=== PATIENT | female | born 1970 | race Caucasian/White ===

== ENCOUNTER → 2016-09-12 | Outpatient (CLI) | payer BC ==
--- NOTE | 2016-09-12 18:21 | CT ---
EXAMINATION TYPE: CT brain wo con DATE OF EXAM: 09/12/2016 5:43 PM COMPARISON: 12/20/2011 HISTORY: Episode of inability to maneuver to the left today with dizziness. History of lupus. CT DLP: 1135 mGycm. Automated Exposure Control for Dose Reduction was Utilized. TECHNIQUE: CT scan of the head is performed without contrast. FINDINGS: There is no acute intracranial hemorrhage, mass effect, or midline shift identified. Old CSF attenuated lacunar injury is seen of the external capsule. The ventricles and sulci are within no rmal limits in size. The globes are intact and the visualized sinuses are clear. IMPRESSION: 1. No acute intracranial hemorrhage, mass effect, or midline shift is seen. 2. 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
== END | disposition home or self-care (01) ==
LOC: RADCTMAIN 17:15
PROVIDERS: ATTEND Nurse Practitioner
DX: R55 Syncope and collapse (principal); M32.10 Systemic lupus erythematosus, organ or system involvement unspecified; R26.81 Unsteadiness on feet; Z87.820 Personal history of traumatic brain injury
CPT/HCPCS: 70450

== ENCOUNTER → 2016-11-29 | Outpatient (CLI) | payer BC ==
--- NOTE | 2016-12-05 08:22 | MM ---
Reason for exam: screening (asymptomatic). Last mammogram was performed 3 years ago. History: Patient history of other cancer. Physical Findings: A clinical breast exam by your physician is recommended on an annual basis and results should be correlated with mammographic findings. MG Screening Mammo w CAD Bilateral CC and MLO view(s) were taken. Prior study comparison: December 06, 2013, right breast MG work up mamm w CAD RT. November 29, 2013, bilateral MG screening mammo w CAD. November 05, 2012, bilateral digital screening mammo w/CAD. October 21, 2011, bilateral digital screening mammo w/CAD. The breast tissue is heterogeneously dense. This may lower the sensitivity of mammography. Asymmetric density inferior posterior left breast MLO view may represent summation but further evaluation is recommended. ASSESSMENT: Incomplete: need additional imaging evaluation, BI-RAD 0 RECOMMENDATION: Special view mammogram of the left breast. If lesion persists on supplemental views, image directed ultrasound is recommended. [facility] will attempt to contact patient to return for supplemental views and ultrasound if indicated.
== END ==
LOC: RADMAMWWP 13:56
PROVIDERS: ATTEND Obstetrics & Gynecology
DX: Z12.31 Encounter for screening mammogram for malignant neoplasm of breast (principal)

== ENCOUNTER → 2016-12-13 | Outpatient (CLI) | payer BC ==
--- NOTE | 2016-12-13 10:55 | MM ---
Reason for exam: additional evaluation requested from abnormal screening. Last mammogram was performed less than 1 month ago. History: Patient history of other cancer. Physical Findings: Nurse did not find any significant physical abnormalities on exam. MG Work Up Mamm w CAD LT LM and MLO view(s) were taken of the left breast. Prior study comparison: November 29, 2016, bilateral MG screening mammo w CAD. December 06, 2013, right breast MG work up mamm w CAD RT. There is no discrete abnormality including area of concern. These results were verbally communicated with the patient and result sheet given to the patient on 12/13/16. ASSESSMENT: Probably benign, BI-RAD 3 RECOMMENDATION: Follow-up diagnostic mammogram of the left breast in 6 months.
== END | disposition home or self-care (01) ==
LOC: RADMAMWWP 10:23
PROVIDERS: ATTEND Obstetrics & Gynecology
DX: R92.8 Other abnormal and inconclusive findings on diagnostic imaging of breast (principal)

== ENCOUNTER → 2017-06-19 | Outpatient (CLI) | payer BC ==
--- NOTE | 2017-06-19 14:41 | MM ---
Reason for exam: follow-up at short interval from prior study. Last mammogram was performed 6 months ago. History: Patient history of other cancer. Physical Findings: Nurse did not find any significant physical abnormalities on exam. MG Diagnostic Mammo LT w CAD CC and MLO view(s) were taken of the left breast. Prior study comparison: December 13, 2016, left breast MG work up mamm w CAD LT. November 29, 2016, bilateral MG screening mammo w CAD. The breast tissue is extremely dense which could obscure a lesion on mammography. No significant new findings when compared with previous films. These results were verbally communicated with the patient and result sheet given to the patient on 06/19/17. ASSESSMENT: Negative, BI-RAD 1 RECOMMENDATION: Return to routine screening mammogram schedule for both breasts. Back on schedule.
== END | disposition home or self-care (01) ==
LOC: RADMAMWWP 13:03
PROVIDERS: ATTEND Family Medicine
DX: R92.8 Other abnormal and inconclusive findings on diagnostic imaging of breast (principal)
CPT/HCPCS: 77065

== ENCOUNTER → 2017-08-12 | Outpatient (CLI) | payer BC ==
[2017-08-12 11:25] LABS: Basophils # (A) 0.1 k/uL (0-0.2); Basophils % (A) 1 %; Eosinophils # (A) 0.1 k/uL (0-0.7); Eosinophils % (A) 2 %; HCT 46.3 % (34.0-46.0); HGB 15.1 gm/dL (11.4-16.0); Lymphocytes # (A) 1.4 k/uL (1.0-4.8); Lymphocytes % (A) 28 %; MCH 29.7 pg (25.0-35.0); MCHC 32.7 g/dL (31.0-37.0); MCV 90.7 fL (80.0-100.0); Mean Platelet Volume 7.3; Monocytes # (A) 0.4 k/uL (0-1.0); Monocytes % (A) 7 %; Neutrophils % (A) 60 %; Platelet Count 188 k/uL (150-450)
[2017-08-12 12:15] LABS: Albumin 4.5 g/dL (3.5-5.0); Bilirubin, Conjugated 0.9 mg/dL (0.0-0.3); Total Bilirubin 0.6 mg/dL (0.2-1.3); Total Protein 7.1 g/dL (6.3-8.2)
== END | disposition home or self-care (01) ==
LOC: LABWHC1 11:12
PROVIDERS: ATTEND Internal Medicine Rheumatology
DX: M32.9 Systemic lupus erythematosus, unspecified (principal); Z51.81 Encounter for therapeutic drug level monitoring
CPT/HCPCS: 36415; 80061; 80076; 82565; 85025

== ENCOUNTER → 2017-09-16 | Outpatient (CLI) | payer BC ==
[2017-09-16 09:53] LABS: Basophils % (A) 0 %; Eosinophils # (A) 0.1 k/uL (0-0.7); Eosinophils % (A) 1 %; HCT 44.9 % (34.0-46.0); HGB 14.9 gm/dL (11.4-16.0); Lymphocytes # (A) 0.9 k/uL (1.0-4.8); Lymphocytes % (A) 15 %; MCH 30.4 pg (25.0-35.0); MCHC 33.1 g/dL (31.0-37.0); MCV 91.7 fL (80.0-100.0); Mean Platelet Volume 7.1; Monocytes # (A) 0.3 k/uL (0-1.0); Monocytes % (A) 5 %; Neutrophils # (A) 4.9 k/uL (1.3-7.7); Neutrophils % (A) 77 %; Platelet Count 180 k/uL (150-450); RDW 13.1 % (11.5-15.5); WBC 6.3 k/uL (3.8-10.6)
[2017-09-16 10:11] LABS: Albumin 4.3 g/dL (3.5-5.0); Total Protein 6.7 g/dL (6.3-8.2)
[2017-09-16 10:25] LABS: Total Bilirubin 0.4 mg/dL (0.2-1.3)
[2017-09-16 10:38] LABS: Bilirubin, Delta 0.4 mg/dL (0.0-0.2)
== END ==
LOC: LABWHC1 09:19
PROVIDERS: ATTEND Internal Medicine Rheumatology
DX: M32.9 Systemic lupus erythematosus, unspecified (principal); Z51.81 Encounter for therapeutic drug level monitoring
CPT/HCPCS: 36415; 80061; 80076; 82565; 85025

== ENCOUNTER → 2017-09-27 | Outpatient (CLI) | payer BC ==
[2017-09-27 17:05] LABS: Basophils % (A) 1 %; Eosinophils % (A) 1 %; HCT 41.1 % (34.0-46.0); HGB 13.8 gm/dL (11.4-16.0); Lymphocytes # (A) 0.9 k/uL (1.0-4.8); Lymphocytes % (A) 16 %; MCHC 33.4 g/dL (31.0-37.0); MCV 92.6 fL (80.0-100.0); Mean Platelet Volume 7.1; Monocytes # (A) 0.5 k/uL (0-1.0); Monocytes % (A) 9 %; Neutrophils # (A) 4.2 k/uL (1.3-7.7); Neutrophils % (A) 73 %; Platelet Count 167 k/uL (150-450); RBC 4.44 m/uL (3.80-5.40); RDW 13.3 % (11.5-15.5); WBC 5.7 k/uL (3.8-10.6)
[2017-09-27 17:07] LABS: Appearance,Urine Clear (Clear); Bilirubin,Urine Negative (Negative); Blood,Urine Negative (Negative); Color,Urine Yellow; Glucose,Urine (UA) Negative (Negative); Ketones,Urine Negative (Negative); Leukocyte Esterase,Urine Negative (Negative); Nitrite,Urine Negative (Negative); Protein,Urine Negative (Negative); Specific Gravity,Urine 1.015 (1.001-1.035); Urobilinogen,Urine <2.0 mg/dL (<2.0)
[2017-09-27 17:24] LABS: Albumin 4.3 g/dL (3.5-5.0); Calcium 9.8 mg/dL (8.4-10.2); Total Bilirubin 0.5 mg/dL (0.2-1.3); Total Protein 6.5 g/dL (6.3-8.2)
== END | disposition home or self-care (01) ==
LOC: LABWHC1 16:11
PROVIDERS: ATTEND Internal Medicine Rheumatology
DX: Z51.81 Encounter for therapeutic drug level monitoring (principal); M32.9 Systemic lupus erythematosus, unspecified
CPT/HCPCS: 36415; 80053; 81003; 85025

== ENCOUNTER → 2017-11-24 | Outpatient (CLI) | payer BC ==
--- NOTE | 2017-11-26 14:17 | CT ---
EXAMINATION TYPE: CT abdomen pelvis w con DATE OF EXAM: 11/24/2017 HISTORY: Bloating and weight gain CT DLP: 802mGycm Automated Exposure Control for Dose Reduction was Utilized. CONTRAST: CT scan of the abdomen and pelvis is performed with IV Contrast, patient injected with 100 mL of Isov ue 300. COMPARISON: None. FINDINGS: LUNG BASES: No significant abnormality is appreciated. LIVER/GB: No significant abnormality is appreciated. No cholelithiasis. Inferior vena cava is engorge d as are the hepatic veins secondary to hydration status. PANCREAS: No significant abnormality is seen. Pancreatic duct is somewhat prominent although nonenlar ged. No abnormal pancreatic enhancement is seen. SPLEEN: No significant abnormality is seen. ADRENALS: No significant abnormality is seen. No nodularity or thickening. KIDNEYS: There is a too small to accurately characterize lower pole posterior cortically based left r enal lesion measuring 7 mm. Otherwise the kidneys are of unremarkable and symmetric enhancement and e xcretion without hydronephrosis. BOWEL: There is a questionable appendicolith within what is thought to be the appendix in the right l ower quadrant on series 2 image 51. No right lower quadrant inflammatory fat stranding or bowel wall thickening is seen to suggest acute appendicitis. No small or large bowel dilatation. UTERUS/ADNEXA: There is a 4.3 cm fluid attenuated left adnexal cyst, although this appears simple in nature further characterization with pelvic ultrasound could be performed. Smaller dominant right-citlalli ed follicle is noted with heterogeneity of the uterus. LYMPH NODES: No greater than 1cm abdominal or pelvic lymph nodes are appreciated. OSSEOUS STRUCTURES: No significant abnormality is seen. IMPRESSION: 1. 4.3 cm fluid attenuating left adnexal cystic lesion which can be further characterized with ultras ound. 2. Too small to accurately characterize left renal hypoattenuating subcentimeter lesion.
== END | disposition home or self-care (01) ==
LOC: RADCTMAIN 14:36
PROVIDERS: ATTEND Family Medicine
DX: N85.8 Other specified noninflammatory disorders of uterus (principal); N28.9 Disorder of kidney and ureter, unspecified; M32.10 Systemic lupus erythematosus, organ or system involvement unspecified
CPT/HCPCS: 74177; Q9967

== ENCOUNTER → 2018-01-12 | Outpatient (CLI) | payer BC | END | disposition home or self-care (01) | LOC: LABWHC1 15:40 | PROVIDERS: ATTEND Obstetrics & Gynecology | DX: N83.201 Unspecified ovarian cyst, right side (principal) | CPT/HCPCS: 36415; 86304 ==

== ENCOUNTER → 2018-02-16 | Outpatient (CLI) | payer BC ==
[2018-02-16 14:15] LABS: Amylase 103 U/L (30-110); Lipase 189 U/L (23-300)
== END | disposition home or self-care (01) ==
LOC: LABWHC1 11:17
PROVIDERS: ATTEND Internal Medicine Rheumatology
DX: R10.9 Unspecified abdominal pain (principal); M54.9 Dorsalgia, unspecified
CPT/HCPCS: 36415; 82150; 83690

== ENCOUNTER 2018-03-16 10:54 | Day surgery (SDC) | payer BC ==
[2018-03-15 13:42] VITALS: BMI 19.7
[~2018-03-16 10:54] MED LIST: ALPRAZolam 0.5 MG TAB PO PRN; ASPIRIN 325 MG TAB PO STA; ATORVASTATIN 80 MG TAB PO STA; NITROGLYCERIN SL TABS 0.4 MG TAB SUBLINGUAL PRN; SODIUM CHLORIDE 0.9% 1,000 ML in EMPTY BAG 1 BAG IV ONE
[2018-03-16] MEDS: ALPRAZolam 0.25 MG TAB PO PRN ×2 (11:34→12:14)
[2018-03-16] MEDS ORDERED: VERAPAMIL 2.5 MG/ML 2 ML AMP ONE (13:37)
[2018-03-16] MEDS ORDERED: fentaNYL (PF) 50 MCG/ML 2 ML AMP ONE (13:37)
[2018-03-16] MEDS ORDERED: fentaNYL (PF) 50 MCG/ML 2 ML AMP IV ONE (13:44)
[2018-03-16] MEDS ORDERED: MIDAZOLAM 2 MG/2 ML VIAL ONE (13:45)
[2018-03-16] MEDS ORDERED: LIDOCAINE 2% SYG (PF) 100 MG/5 ML MISCELLANE ONE (13:47)
[2018-03-16] MEDS ORDERED: MIDAZOLAM 2 MG/2 ML VIAL IV ONE ×2 (13:48)
[2018-03-16] MEDS ORDERED: HEPARIN SODIUM 1,000 UN/ML (10ML VL) ONE (13:56)
[2018-03-16] MEDS ORDERED: HEPARIN SODIUM 1,000 UN/ML (10ML VL) IV ONE (13:57)
[2018-03-16] MEDS ORDERED: IOPAMIDOL-370 125ML BTL INJ ONE (14:01)
[2018-03-16] MEDS ORDERED: RX INFO: IV CONTRAST WAS GIVEN 1 EACH MISC MISCELLANE PRN (14:14)
[2018-03-16] MEDS ORDERED: SODIUM CHLORIDE 0.9% 1,000 ML IV SCH (14:15)
--- NOTE | 2018-03-16 14:58 | CC ---
CARDIAC CATHETERIZATION REPORT Mrs. Wallace is a 48-year-old female with no prior documented history of obstructive coronary artery disease with normal left ventricular systolic function, who has been complaining of palpitation and dizziness when she is active physically. She underwent a regular stress test where she had runs of ventricular tachycardia. In view of that, recommendation made regarding cardiac catheterization, the procedures, risks and complications were discussed with the patient who is in full understanding and agreement. PROCEDURE: Patient was brought to the [facility] in a fasting semi-sedated state after receiving fentanyl and Benadryl and achieving moderate conscious sedated state. Using Xylocaine anesthesia and Seldinger technique, a 6-Barbadian sheath was introduced in the right radial artery. Selective right and left coronary angiography was performed using 5- Barbadian 3.5 right and left Gris catheter. Multiple views of coronary artery including hemiaxial views obtained. Following that, a 5-Barbadian tight pigtail catheter was introduced in the left ventricle and a 30 degree CLIFTON view of the left ventricle was obtained. Following that, catheter and sheath were removed. Hemostasis was obtained with deployment of a TR band. There was no immediate complication. Patient is returned to room in stable condition. Of note, patient received 3000 units of intravenous heparin as well as intra-arterial verapamil. FINDINGS: 1. LEFT MAIN: This is a large-sized vessel, bifurcating into left circumflex, left anterior descending artery. Left main coronary artery has no evidence of high- grade stenosis. 2. LEFT ANTERIOR DESCENDING ARTERY: This is a large-sized vessel, reaching toward the apex with a wraparound apex segment. The left anterior descending artery as well as branches have no evidence of obstructive coronary artery disease. 3. LEFT CIRCUMFLEX: This is a nondominant vessel, large in caliber, giving rise to 2 obtuse marginal branches, the left circumflex and its branches have no evidence of obstructive coronary artery disease. 4. RIGHT CORONARY ARTERY: This is a large dominant vessel, bifurcating into PDA and posterolateral segment branches. The right coronary artery as well as it branches have no evidence of obstructive disease. 5. LEFT VENTRICULOGRAM: Left ventriculogram was performed in 30 degree CLIFTON view and revealed normal left ventricular size and systolic function. Ejection fraction 60%. There was no significant mitral regurgitation. 6. HEMODYNAMICS: There was no gradient across the aortic valve. The left ventricular end-diastolic pressure was 8-10 mmHg. CONCLUSION: 1. Normal coronary arteries. 2. Normal left ventricular size and systolic function. RECOMMENDATION: In view of finding anatomy, I will continue present medical therapy. Patient was started on beta radha. She will need further evaluation regarding new tachycardia, possible with a cardiac MRI and EP study with possible ICD implantation. Those findings and recommendation were discussed with the patient and her family who are in full understanding and agreement. Duration of procedure is 17 minutes. TAVARES / GRISELDAN: [id number] /
[2018-03-16] MEDS ORDERED: INFLUENZA VACCINE (6 MOS+) 60 MCG/0.5 ML SYRINGE IM ONE (17:10)
[2018-03-16] MEDS: METOPROLOL TARTRATE 25 MG TAB PO SCH (20:59)
[2018-03-16] MEDS ORDERED: busPIRone HCl 10 MG TAB PO SCH (21:00)
[2018-03-16] MEDS ORDERED: MELOXICAM 7.5 MG TAB PO SCH (21:00)
[2018-03-16] MEDS ORDERED: sulfaSALAzine 500 MG TAB PO SCH (21:00)
[2018-03-16] MEDS ORDERED: MIRTAZAPINE 15 MG TAB PO SCH (21:00)
[2018-03-16] MEDS ORDERED: HYDROXYCHLOROQUINE SULFATE 200 MG TAB PO SCH (21:00)
[2018-03-16 23:36] VITALS: RESP 16
[2018-03-17 08:22] VITALS: BP 98/63; PULSE 72; TEMP 98.5
--- NOTE | 2018-03-17 08:46 | PN ---
PROGRESS NOTE Mrs. Wallace is a 48-year-old female with a history of lupus, who was found to have evidence of atrial ventricular tachycardia on the stress test. Underwent cardiac catheterization yesterday that revealed no evidence of obstructive coronary artery disease with normal left ventricular size and systolic function. She is doing well this morning. She is denying any symptoms of chest pain. Her breathing has been stable. No dizziness. No palpitation. She continues to be on Azulfidine, Remeron, Mobic, Lopressor 25 mg twice a day. PHYSICAL EXAMINATION: Blood pressure 103/50 with a heart rate in the 50s. LUNGS: Clear. HEART: Regular rate and rhythm, S1, S2. No S3. No rub. ABDOMEN: Soft and nontender. EXTREMITIES: No edema. Right radial pulse intact. IMPRESSION: 1. Ventricular tachycardia of unclear etiology. The patient tells me that she had a cardiac MRI at [facility] that was reported to be unremarkable. She will need further evaluation with EP study and possible ICD implant. 2. History of lupus. RECOMMENDATIONS: Patient will be discharged home today on the beta radha. I have contacted [facility] and awaiting their respond for further evaluation. The patient will refrain from running until further evaluation is done. MMODL / IJN: [id number] /
[2018-03-17] MEDS: METOPROLOL TARTRATE 25 MG TAB PO SCH (08:58)
[2018-03-17] MEDS ORDERED: FISH OIL PO SCH (09:00)
[2018-03-17] MEDS ORDERED: LACTOBACILLUS ACIDOPH & BULGAR 1 EACH PACKET PO SCH (09:00)
== END 2018-03-17 10:03 | disposition home or self-care (01) ==
LOC: CATHCVL 10:54 → 1SOBS 14:30 → CATHCVL 03-17 10:03
PROVIDERS: ATTEND Internal Medicine Interventional Cardiology
DX: I47.2 Ventricular tachycardia (principal); R94.39 Abnormal result of other cardiovascular function study; M32.9 Systemic lupus erythematosus, unspecified; R07.9 Chest pain, unspecified; Z88.4 Allergy status to anesthetic agent; Z88.8 Allergy status to other drugs, medicaments and biological substances; Z79.1 Long term (current) use of non-steroidal anti-inflammatories (NSAID); Z79.899 Other long term (current) drug therapy
CPT/HCPCS: 93458; 81025; 90686; C1894; C1769; G0008; J2250; J2001; J3010; J1644; Q9967

== ENCOUNTER → 2018-04-09 | Outpatient (CLI) | payer BC ==
[2018-04-09 07:49] LABS: HCT 47.4 % (34.0-46.0); HGB 14.9 gm/dL (11.4-16.0); MCH 29.3 pg (25.0-35.0); MCHC 31.4 g/dL (31.0-37.0); MCV 93.3 fL (80.0-100.0); Mean Platelet Volume 6.8; Platelet Count 238 k/uL (150-450); RBC 5.08 m/uL (3.80-5.40); RDW 12.9 % (11.5-15.5); WBC 7.5 k/uL (3.8-10.6)
[2018-04-09 07:58] LABS: Prothrombin Time 10.4 sec (9.0-12.0)
[2018-04-09 08:01] LABS: Anion Gap 6 mmol/L; Blood Urea Nitrogen 21 mg/dL (7-17); Calcium 9.8 mg/dL (8.4-10.2); Carbon Dioxide 29 mmol/L (22-30); Chloride 105 mmol/L (98-107); Glucose 79 mg/dL (74-99); Potassium 4.2 mmol/L (3.5-5.1); Sodium 140 mmol/L (137-145)
== END ==
LOC: LABWHC1 07:01
PROVIDERS: ATTEND Psychiatry & Neurology Psychiatry
DX: I47.2 Ventricular tachycardia (principal)
CPT/HCPCS: 36415; 80048; 85027; 85610

== ENCOUNTER → 2018-06-07 | Outpatient (CLI) | payer BC ==
[2018-06-07 16:43] LABS: Basophils # (A) 0.1 k/uL (0-0.2); Basophils % (A) 1 %; Eosinophils % (A) 0 %; HGB 13.9 gm/dL (11.4-16.0); Lymphocytes # (A) 1.5 k/uL (1.0-4.8); Lymphocytes % (A) 16 %; MCH 29.2 pg (25.0-35.0); MCHC 31.6 g/dL (31.0-37.0); MCV 92.5 fL (80.0-100.0); Mean Platelet Volume 6.9; Monocytes # (A) 0.5 k/uL (0-1.0); Monocytes % (A) 5 %; Neutrophils % (A) 77 %; Platelet Count 213 k/uL (150-450); RBC 4.75 m/uL (3.80-5.40); WBC 9.1 k/uL (3.8-10.6)
[2018-06-08 01:09] LABS: Albumin 4.5 g/dL (3.80-4.90); Albumin/Globulin Ratio 2.14 (1.60-3.17); Bilirubin, Conjugated 0.2 mg/dL (0.20-0.40); Bilirubin,Unconjugated 0.2 mg/dL; Globulin 2.1 g/dL (1.6-3.3); Total Bilirubin 0.4 mg/dL (0.3-1.2); Total Protein 6.6 g/dL (6.2-8.2)
== END | disposition home or self-care (01) ==
LOC: LABWHC1 15:53
PROVIDERS: ATTEND Internal Medicine Rheumatology
DX: M32.9 Systemic lupus erythematosus, unspecified (principal); Z51.81 Encounter for therapeutic drug level monitoring
CPT/HCPCS: 36415; 80061; 80076; 82565; 85025

== ENCOUNTER 2018-06-20 19:49 | Emergency (ER) | payer BC ==
[2018-06-20 20:33] VITALS: TEMP 99.4
[2018-06-20 21:35] LABS: HCT 49.3 % (34.0-46.0); HGB 15.9 gm/dL (11.4-16.0); MCH 29.9 pg (25.0-35.0); MCHC 32.2 g/dL (31.0-37.0); WBC 9.1 k/uL (3.8-10.6)
[2018-06-20 21:36] LABS: Basophils % (A) 0 %; Eosinophils % (A) 1 %; Lymphocytes # (A) 0.2 k/uL (1.0-4.8); Lymphocytes % (A) 2 %; Mean Platelet Volume 6.8; Monocytes # (A) 0.4 k/uL (0-1.0); Monocytes % (A) 5 %; Neutrophils # (A) 8.4 k/uL (1.3-7.7); Neutrophils % (A) 92 %; Platelet Count 167 k/uL (150-450)
[2018-06-20 21:47] LABS: Calcium 9.1 mg/dL (8.4-10.2); Magnesium 1.9 mg/dL (1.6-2.3); Potassium 4.3 mmol/L (3.5-5.1); Total Bilirubin 0.7 mg/dL (0.2-1.3); Total Protein 6.7 g/dL (6.3-8.2)
--- NOTE | 2018-06-20 21:47 | XR ---
EXAMINATION TYPE: XR chest 2V DATE OF EXAM: 06/20/2018 COMPARISON: 12/20/2011 HISTORY: Chest pain TECHNIQUE: Frontal and lateral views of the chest are obtained. FINDINGS: Heart and mediastinum are normal. Lungs are clear. Costophrenic angles are clear. There is implanted device over the left lateral chest wall. Bony thorax is intact. IMPRESSION: No active cardiopulmonary disease. Normal heart. No change.
[2018-06-20 21:51] LABS: D-Dimer 0.23 mg/L FEU (<0.60); Partial Thromboplastin Time 23.9 sec (22.0-30.0); Prothrombin Time 10.5 sec (9.0-12.0)
[2018-06-20 21:53] LABS: Creatine Kinase 37 U/L (30-135)
[2018-06-20 22:07] LABS: Creatine Kinase MB 0.2 ng/mL (0.0-2.4); Troponin I <0.012 ng/mL (0.000-0.034)
[2018-06-20] MEDS ORDERED: ONDANSETRON 4 MG/2 ML VIAL IVP STA (22:13)
[2018-06-20] MEDS ORDERED: SODIUM CHLORIDE 0.9% 1,000 ML IV ONE (22:13)
[2018-06-20] MEDS ORDERED: MAGNESIUM SULFATE-D5W PMX 1 GM in DEXTROSE/WATER 1 100ML.BAG IVPB ONE (22:23)
--- NOTE | 2018-06-20 23:24 | ED ---
Chest Pain HPI - General Chief Complaint: Chest Pain Stated Complaint: Diarrhea, vomiting and chest pain Time Seen by Provider: 06/20/18 21:04 Source: family Mode of arrival: ambulatory Limitations: no limitations - History of Present Illness Initial Comments: This patient is a 48-year-old woman presenting with a couple of complaints. She states that she was in her usual state of health until developing diarrhea this morning. She states she had a number of watery bowel movements early, then thought that she was feeling better. She states that she then developed a number of episodes of vomiting along with the diarrhea, and after that noted that there was some pain in her chest. She became concerned as she has had history of having episodes of V. tach, having a defibrillator placed for that. At one point her watch registered pulse of 1:30 to 140. The patient did not have any dyspnea, diaphoresis. Review of the patient's records shows that she had a heart catheterization in March that did not reveal any significant coronary artery disease. MD Complaint: chest pain, other -: hour(s) Onset: during rest Pain Location: left chest Pain Radiation: none Severity: mild Quality: aching Consistency: constant Improves With: nothing Worsens With: nothing Anginal Symptoms: nausea, vomiting Treatments Prior to Arrival: none - Related Data Home Medications Medication Instructions Recorded Confirmed Mirtazapine [Remeron] 60 mg PO HS 03/15/18 06/20/18 busPIRone HCL 10 mg PO BID 03/15/18 06/20/18 sulfaSALAzine [Azulfidine] 1,500 mg PO BID 03/15/18 06/20/18 Metoprolol Tartrate [Lopressor] 100 mg PO TID 06/20/18 06/20/18 predniSONE 10 mg PO DAILY 06/20/18 06/20/18 Previous Rx's Medication Instructions Recorded Metoclopramide HCl [Reglan] 5 mg PO Q6H PRN #12 tablet 06/20/18 Allergies Allergy/AdvReac Type Severity Reaction Status Date / Time azithromycin [From Zithromax] Allergy Rash/Hives Verified 06/20/18 20:59 prochlorperazine Allergy "panic Verified 06/20/18 20:59 [From Compazine] attack" Review of Systems ROS Statement: Those systems with pertinent positive or pertinent negative responses have been documented in the HPI. ROS Other: All systems not noted in ROS Statement are negative. Constitutional: Denies: fever, chills Respiratory: Denies: cough, dyspnea Cardiovascular: Reports: as per HPI, chest pain. Denies: palpitations, dyspnea on exertion, orthopnea, edema, syncope Gastrointestinal: Reports: as per HPI, nausea, vomiting, diarrhea. Denies: abdominal pain, hematemesis, melena, hematochezia Genitourinary: Denies: dysuria, hematuria Musculoskeletal: Denies: back pain Skin: Denies: rash Neurological: Denies: headache, weakness, numbness EKG Findings - EKG Results: EKG: interpreted by MEE VASQUEZ, sinus rhythm (Rate 85 bpm), normal axis, normal QRS, normal ST/T, no acute changes - OR, Pacemaker, Normal: Normal tracing: normal tracing Past Medical History Past Medical History: Atrial Fibrillation, Cancer Additional Past Medical History / Comment(s): "heart races"- stress test showed A-fib, heart murmer in past, lupus, psoriatic arthritis, hx skin cancer, lupus History of Any Multi-Drug Resistant Organisms: None Reported Past Surgical History: Appendectomy, Orthopedic Surgery, Uterine Ablation Additional Past Surgical History / Comment(s): skin cancer removed from left arm , ACL left knee, arthrosopy left knee, exploratory laparoscopy, left foot surgery-neuroma, Past Anesthesia/Blood Transfusion Reactions: Motion Sickness, Postoperative Nausea & Vomiting (PONV) Past Psychological History: Anxiety Smoking Status: Former smoker Past Alcohol Use History: Occasional Past Drug Use History: None Reported - Past Family History Mother Family Medical History: Cancer General Exam Limitations: no limitations General appearance: alert, in no apparent distress Head exam: Present: atraumatic, normocephalic Eye exam: Present: normal appearance. Absent: scleral icterus, conjunctival injection ENT exam: Present: normal oropharynx Neck exam: Present: normal inspection Respiratory exam: Present: normal lung sounds bilaterally. Absent: respiratory distress, wheezes, rales, rhonchi, stridor Cardiovascular Exam: Present: regular rate, normal rhythm, normal heart sounds. Absent: systolic murmur, diastolic murmur, rubs, gallop GI/Abdominal exam: Present: soft. Absent: distended, tenderness, guarding, rebound, rigid, mass Extremities exam: Present: normal inspection, normal capillary refill. Absent: pedal edema, calf tenderness Back exam: Present: normal inspection. Absent: CVA tenderness (R), CVA tenderness (L) Neurological exam: Present: alert Skin exam: Present: warm, dry, intact, normal color. Absent: rash Course Vital Signs 06/20/18 06/20/18 06/20/18 19:51 20:33 23:00 Temperature 97.6 F 99.4 F Pulse Rate 101 H 85 Respiratory 22 16 Rate Blood Pressure 100/66 107/60 O2 Sat by Pulse 100 100 Oximetry 06/21/18 00:17 Temperature Pulse Rate 87 Respiratory 16 Rate Blood Pressure 102/55 O2 Sat by Pulse 100 Oximetry Chest Pain MDM - MDM This patient is 48-year-old woman presenting with symptoms consistent with gastroenteritis. She did have some chest pain following the episodes of vomiting. The patient's feeling better following treatment and requests go home. We discussed the appropriate further care and follow-up. Disposition Clinical Impression: Gastroenteritis, Chest pain Disposition: HOME SELF-CARE Instructions (If sedation given, give patient instructions): Chest Pain (ED) Prescriptions: Metoclopramide HCl [Reglan] 5 mg PO Q6H PRN #12 tablet PRN Reason: Vomiting Is patient prescribed a controlled substance at d/c from ED?: No Referrals: Lindsay Sanderson MD [Primary Care Provider] - 1-2 days
[2018-06-21 00:17] VITALS: RESP 16
[2018-06-21 00:18] VITALS: BP 102/55; PULSE 87
== END 2018-06-21 00:17 | disposition home or self-care (01) ==
LOC: EC 19:49
DX: K52.9 Noninfective gastroenteritis and colitis, unspecified (principal); R07.89 Other chest pain; I48.91 Unspecified atrial fibrillation; F41.9 Anxiety disorder, unspecified; L40.50 Arthropathic psoriasis, unspecified; Z87.891 Personal history of nicotine dependence; Z79.899 Other long term (current) drug therapy; Z79.52 Long term (current) use of systemic steroids; Z88.1 Allergy status to other antibiotic agents; Z88.8 Allergy status to other drugs, medicaments and biological substances; Z85.828 Personal history of other malignant neoplasm of skin; Z95.810 Presence of automatic (implantable) cardiac defibrillator
CPT/HCPCS: 36415; 93005; 85379; 80053; 82550; 82553; 83735; 84484; 85025; 85610; 85730; 71046; 99285; 96365; 96375; 96361; J2405; J3475

== ENCOUNTER → 2018-12-11 | Outpatient (CLI) | payer BC ==
--- NOTE | 2018-12-13 12:13 | MM ---
Reason for exam: screening (asymptomatic). Last mammogram was performed 1 year and 6 months ago. History: Patient history of other cancer. Physical Findings: A clinical breast exam by your physician is recommended on an annual basis and results should be correlated with mammographic findings. MG Screening Mammo w CAD Bilateral CC and MLO view(s) were taken. Prior study comparison: June 19, 2017, left breast MG diagnostic mammo LT w CAD. December 13, 2016, left breast MG work up mamm w CAD LT. The breast tissue is extremely dense which could obscure a lesion on mammography. Benign appearing bilateral calcifications. No significant changes when compared with prior studies. ASSESSMENT: Benign, BI-RAD 2 RECOMMENDATION: Routine screening mammogram of both breasts in 1 year.
== END | disposition home or self-care (01) ==
LOC: RADMAMWWP 13:55
PROVIDERS: ATTEND Obstetrics & Gynecology
DX: Z12.31 Encounter for screening mammogram for malignant neoplasm of breast (principal)
CPT/HCPCS: 77067

== ENCOUNTER → 2018-12-28 | Outpatient (CLI) | payer BC ==
[2018-12-28 23:57] LABS: Albumin 4.3 g/dL (3.80-4.90); Anion Gap 6.6 mmol/L (4.00-12.00); BUN/Creat Ratio 19.29 Ratio (12.00-20.00); Calcium 9.5 mg/dL (8.7-10.3); Carbon Dioxide 26.4 mmol/L (21.6-31.8); Magnesium 2.3 mg/dL (1.5-2.4); Phosphorus 3.2 mg/dL (2.4-5.1); Potassium 4.9 mmol/L (3.5-5.5)
== END | disposition home or self-care (01) ==
LOC: LABWHC1 16:40
PROVIDERS: ATTEND Internal Medicine Rheumatology
DX: M32.9 Systemic lupus erythematosus, unspecified (principal); R10.84 Generalized abdominal pain
CPT/HCPCS: 36415; 80069; 83735

== ENCOUNTER → 2019-12-27 | Outpatient (CLI) | payer BC ==
[2019-12-27 16:24] LABS: Basophils % (A) 1 %; Eosinophils # (A) 0.1 k/uL (0-0.7); Eosinophils % (A) 1 %; HCT 45.8 % (34.0-46.0); HGB 14.5 gm/dL (11.4-16.0); Lymphocytes # (A) 1.9 k/uL (1.0-4.8); Lymphocytes % (A) 24 %; MCH 28.7 pg (25.0-35.0); MCHC 31.6 g/dL (31.0-37.0); MCV 90.7 fL (80.0-100.0); Mean Platelet Volume 7.2; Monocytes # (A) 0.4 k/uL (0-1.0); Monocytes % (A) 5 %; Neutrophils # (A) 5.4 k/uL (1.3-7.7); Neutrophils % (A) 68 %; Platelet Count 213 k/uL (150-450); RBC 5.05 m/uL (3.80-5.40); RDW 12.8 % (11.5-15.5); WBC 7.9 k/uL (3.8-10.6)
[2019-12-28 00:41] LABS: Erythrocyte Sedimentation Rate 4 mm/Hr (0-20)
[2019-12-28 01:30] LABS: ALT 21 U/L (8-44); AST 28 U/L (13-35); Albumin/Globulin Ratio 2.05 (1.60-3.17); Alkaline Phosphatase 63 U/L (41-126); BUN/Creat Ratio 21.67 Ratio (12.00-20.00); C Reactive Protein <0.4 mg/dL (0.0-0.8); Calcium 9.4 mg/dL (8.7-10.3); Carbon Dioxide 29.1 mmol/L (21.6-31.8); Chloride 106 mmol/L (96-109); Globulin 2.1 g/dL (1.6-3.3); Glucose 78 mg/dL (70-110); Non-African American GFR(CKD) 52.7 (60.0-200.0); Potassium 4.8 mmol/L (3.5-5.5); Sodium 140 mmol/L (135-145); Total Bilirubin 0.4 mg/dL (0.3-1.2); Total Protein 6.4 g/dL (6.2-8.2)
== END | disposition home or self-care (01) ==
LOC: LABWHC1 15:31
PROVIDERS: ATTEND Internal Medicine Rheumatology
DX: L40.50 Arthropathic psoriasis, unspecified (principal); R53.83 Other fatigue
CPT/HCPCS: 36415; 80053; 84443; 85025; 85652; 86140

== ENCOUNTER → 2020-04-23 | Outpatient (CLI) | payer BC ==
--- NOTE | 2020-04-27 12:06 | BD ---
EXAMINATION TYPE: Axial Bone Density DATE OF EXAM: 04/23/2020 COMPARISON: 11/29/2013 CLINICAL HISTORY: History of multiple foot fractures. Postmenopausal female. Height: 65.5 IN Weight: 128 LBS FRAX RISK QUESTIONS: Secondary Osteoporosis: 3. Menopause before 45: ABLATION AGE 43 RISK FACTORS HISTORY OF: Family History of Osteoporosis: YES GRANDMA Active: YES Diet low in dairy products/other sources of calcium: YES Postmenopausal woman: [place]ATION AGE 43 Take estrogen and/or progesterone medications: YES PREMPRO FOR 6 MONTHS MEDICATIONS: Additional Medications: CALCIUM, VIT D, LUPUS MEDS, ANXIETY MEDS EXAM MEASUREMENTS: Bone mineral densitometry was performed using the [employer] System. Bone mineral density as measured about the Lumbar spine is: ----- L1-L4(G/cm2): 1.031 T Score Values are as follows: ----- L2: -1.3 ----- L3: -1.4 ----- L4: -1.2 ----- L1-L4: -1.2 Bone mineral density has: Decreased -11.8% since study of: 11/29/2013 Bone mineral density about the R hip (g/cm2): 1.034 Bone mineral density about the L hip (g/cm2): 1.003 T Score values are as follows: -----R Neck: 0.0 -----L Neck: -0.2 -----R Total: -0.4 -----L Total: -0.7 Bone mineral density has: Decreased -6.4% since study of: 11/29/2013 IMPRESSION: Osteopenia (T Score between -2.5 and -1) is now present. There is slightly increased risk of fracture and the patient may be considered for treatment. Re-Screen 2-5 years. NOTE: T-SCORE=SD OF THE YOUNG ADULT MEAN.
== END | disposition home or self-care (01) ==
LOC: RADBDWWP 09:15
PROVIDERS: ATTEND Obstetrics & Gynecology
DX: M85.80 Other specified disorders of bone density and structure, unspecified site (principal)
CPT/HCPCS: 77080

== ENCOUNTER → 2020-06-30 | Outpatient (CLI) | payer BC ==
--- NOTE | 2020-07-02 11:39 | MM ---
Reason for exam: screening (asymptomatic). Last mammogram was performed 1 year and 7 months ago. History: Patient is postmenopausal and has history of other cancer at age 30. Family history of breast cancer in sister at age 52. Taking estrogen for 1 year. Taking progesterone for 1 year. Physical Findings: A clinical breast exam by your physician is recommended on an annual basis and results should be correlated with mammographic findings. MG Screening Mammo w CAD Bilateral CC and MLO view(s) were taken. Prior study comparison: December 11, 2018, bilateral MG screening mammo w CAD. June 19, 2017, left breast MG diagnostic mammo LT w CAD. The breast tissue is heterogeneously dense. This may lower the sensitivity of mammography. No significant changes when compared with prior studies. ASSESSMENT: Benign, BI-RAD 2 RECOMMENDATION: Routine screening mammogram of both breasts in 1 year.
== END ==
LOC: RADMAMWWP 07:18
PROVIDERS: ATTEND Obstetrics & Gynecology
DX: Z12.31 Encounter for screening mammogram for malignant neoplasm of breast (principal); Z78.0 Asymptomatic menopausal state; Z80.3 Family history of malignant neoplasm of breast
CPT/HCPCS: 77067

== ENCOUNTER → 2021-07-26 | Outpatient (CLI) | payer BC ==
--- NOTE | 2021-07-27 12:58 | MM ---
Reason for exam: screening (asymptomatic). Last mammogram was performed 1 year and 1 month ago. History: Patient is postmenopausal and has history of other cancer at age 30. Family history of breast cancer in sister at age 52. Taking estrogen for 1 year. Taking progesterone for 1 year. Physical Findings: A clinical breast exam by your physician is recommended on an annual basis and results should be correlated with mammographic findings. MG Screening Mammo w CAD Bilateral CC and MLO view(s) were taken. Prior study comparison: June 30, 2020, bilateral MG screening mammo w CAD. December 11, 2018, bilateral MG screening mammo w CAD. The breast tissue is heterogeneously dense. This may lower the sensitivity of mammography. Posterior lateral asymmetric density right breast. Further evaluation recommended. Left MLO asymmetric density just superior to the retroareolar plane is more defined. ASSESSMENT: Incomplete: need additional imaging evaluation, BI-RAD 0 RECOMMENDATION: Special view mammogram of both breasts. (3D) If lesion persists on supplemental views, image directed ultrasound is recommended. [facility] will attempt to contact patient to return for supplemental views and ultrasound if indicated.
== END | disposition home or self-care (01) ==
LOC: RADMAMWWP 13:01
PROVIDERS: ATTEND Obstetrics & Gynecology
DX: Z12.31 Encounter for screening mammogram for malignant neoplasm of breast (principal); Z78.0 Asymptomatic menopausal state; Z80.3 Family history of malignant neoplasm of breast
CPT/HCPCS: 77067

== ENCOUNTER → 2021-07-29 | Outpatient (CLI) | payer BC ==
--- NOTE | 2021-07-30 08:32 | MM ---
Reason for exam: additional evaluation requested from abnormal screening. Last mammogram was performed less than 1 month ago. History: Patient is postmenopausal and has history of other cancer at age 30. Family history of breast cancer in sister at age 52. Taking estrogen for 1 year beginning at age 50. Taking progesterone for 1 year beginning at age 50. Physical Findings: A clinical breast exam by your physician is recommended on an annual basis and results should be correlated with mammographic findings. MG Work Up Mamm w CAD BILAT Bilateral spot compression CC and spot compression MLO view(s) were taken. ML view(s) were taken of the right breast. LM view(s) were taken of the left breast. Prior study comparison: July 26, 2021, bilateral MG screening mammo w CAD. June 30, 2020, bilateral MG screening mammo w CAD. The breast tissue is heterogeneously dense. This may lower the sensitivity of mammography. Right lateral posterior density disperses. Left central upper inner quadrant focal asymmetry partially disperses. Ultrasound recommended. ASSESSMENT: Incomplete: need additional imaging evaluation, BI-RAD 0 RECOMMENDATION: Ultrasound of the left breast. (8-12 o'clock)
--- NOTE | 2021-07-30 08:33 | USB ---
Reason for exam: additional evaluation requested from abnormal screening. History: Patient is postmenopausal and has history of other cancer at age 30. Family history of breast cancer in sister at age 52. Taking estrogen for 1 year beginning at age 50. Taking progesterone for 1 year beginning at age 50. Physical Findings: A clinical breast exam by your physician is recommended on an annual basis and results should be correlated with mammographic findings. US Breast Workup Limited LT Left limited breast ultrasound including focal area of concern, retroareolar and axilla demonstrates no cystic or solid lesion seen. Scanned 8-12 o'clock, dense tissue. ASSESSMENT: Probably benign, BI-RAD 3 RECOMMENDATION: Follow-up diagnostic mammogram of the left breast in 6 months.
== END | disposition home or self-care (01) ==
LOC: RADMAMWWP 13:41
PROVIDERS: ATTEND Obstetrics & Gynecology
DX: R92.8 Other abnormal and inconclusive findings on diagnostic imaging of breast (principal); Z78.0 Asymptomatic menopausal state; Z80.3 Family history of malignant neoplasm of breast
CPT/HCPCS: 77066

== ENCOUNTER → 2022-02-04 | Outpatient (CLI) | payer BC ==
--- NOTE | 2022-02-04 15:28 | MM ---
Reason for Exam: Follow-up at short interval from prior study. Last screening mammogram was performed 7 month(s) ago. Patient History: Menarche at age 12. First Full-Term at age 25. Postmenopausal. Other cancer, age 30. Estrogen for 2 years from age 50 until age 52. Progesterone for 2 years from age 50 until age 52. Sister had breast cancer, age 52. Risk Values: Hien 5 year model risk: 2.2%. NCI Lifetime model risk: 16.1%. Prior Study Comparison: 06/30/2020 Bilateral Screening Mammogram, [facility]. 07/26/2021 Bilateral Screening Mammogram, [facility]. 07/29/2021 Bilateral Diagnostic Mammogram, [facility]. Tissue Density: Left: The breast tissue is heterogeneously dense. This may lower the sensitivity of mammography. Findings: Analyzed By CAD. No persistent focal asymmetric density or distortion is evident. No suspicious spiculated or lobular masses, cluster microcalcifications or other secondary signs of malignancy are radiographically apparent. Overall Assessment: Benign, BI-RAD 2 Management: Screening Mammogram of both breasts in 6 months. A clinical breast exam by your physician is recommended on an annual basis and results should be correlated with mammographic findings. This exam should not preclude additional follow-up of suspicious palpable abnormalities. Results were given to the patient verbally at the time of exam. Electronically signed and approved by: Elgin Duncan D.O. Radiologis
== END | disposition home or self-care (01) ==
LOC: RADMAMWWP 13:35
PROVIDERS: ATTEND Obstetrics & Gynecology
DX: R92.8 Other abnormal and inconclusive findings on diagnostic imaging of breast (principal)
CPT/HCPCS: 77065

== ENCOUNTER → 2022-08-08 | Outpatient (CLI) | payer BC ==
--- NOTE | 2022-08-08 16:12 | BD ---
EXAMINATION TYPE: Axial Bone Density DATE OF EXAM: 08/08/2022 CLINICAL HISTORY: 52 years old Female. ICD-10 CODE: MM85.88 Height: 66 Weight: 130.7 FRAX RISK QUESTIONS: Alcohol (3 or more units per day): no Family History (Parent hip fracture): no Glucocorticoids (More than 3mos): no (Ex: prednisone, prednisolone, methylprednisolone, dexamethasone, and hydrocortisone). History of Fracture in Adulthood: yes Secondary Osteoporosis: 1. Type 1 Diabetes: no 2. Hyperthyroidism: no 3. Menopause before 45: no 4. Malnutrition: no 5. Chronic liver disease: no Rheumatoid Arthritis: no Current Tobacco Use: no RISK FACTORS HISTORY OF: Surgery to Spine/Hip(right/left)/Wrist (right/left): no Family History of Osteoporosis: yes Active: yes Diet low in dairy products/other sources of calcium: yes Postmenopausal woman: no Lost more than 2 inches in height since high school: no MEDICATIONS: Additional History: EXAM MEASUREMENTS: Bone mineral densitometry was performed using the [email or web address] System. Bone mineral density as measured about the Lumbar spine is: ----- L1-L4(G/cm2): 1.078 T Score Values are as follows: ----- L1: -0.9 ----- L2: -1.0 ----- L3: -0.9 ----- L4: -0.7 ----- L1-L4: -0.9 Z Score Values are as follows: ----- L1: -0.1 ----- L2: -0.2 ----- L3: -0.1 ----- L4: 0.2 ----- L1-L4: 0.0 Bone mineral density has: increased 4.6 % since study of: 04.23.2020 Bone mineral density about the R hip (g/cm2): 0.972 Bone mineral density about the L hip (g/cm2): 0.947 T Score values are as follows: -----R Neck: -0.1 -----L Neck: 0.2 -----R Total: -0.3 -----L Total: -0.5 Z Score values are as follows: -----R Neck: 0.9 -----L Neck: 1.3 -----R Total: 0.4 -----L Total: 0.2 Bone mineral density has: increased 1.8 % since study of: 04.23.2020 FRAX%s: The graph provided illustrates a 7.6% chance for a major osteoporotic fx and a 0.2% chance fo r the hips probability for fx in 10 years time. IMPRESSION: Normal (Values between +1 and -1 indicate normal bone mass). Consider repeating this study in 5 year s or sooner if there is some new clinical indication. NOTE: T-SCORE=SD OF THE YOUNG ADULT MEAN.
--- NOTE | 2022-08-09 09:53 | MM ---
Reason for Exam: Screening (asymptomatic). Last mammogram was performed 1 year(s) and 1 month(s) ago. Patient History: Menarche at age 12. First Full-Term at age 25. Postmenopausal. Other cancer, age 30. Estrogen for 2 years from age 50 until age 52. Progesterone for 2 years from age 50 until age 52. Sister had breast cancer, age 52. Risk Values: Hien 5 year model risk: 2.2%. NCI Lifetime model risk: 16.1%. Prior Study Comparison: 07/26/2021 Bilateral Screening Mammogram, [facility]. 07/29/2021 Bilateral Diagnostic Mammogram, [facility]. 02/04/2022 Left MG diagnostic mammo LT w CAD, [facility]. Tissue Density: The breast tissue is heterogeneously dense. This may lower the sensitivity of mammography. Findings: Analyzed By CAD. There is no suspicious group of microcalcifications or new suspicious mass in either breast. Overall Assessment: Negative, BI-RAD 1 Management: Screening Mammogram of both breasts in 1 year. A clinical breast exam by your physician is recommended on an annual basis and results should be correlated with mammographic findings. Electronically signed and approved by: Deandre Mckeon M.D. Radiologis
== END | disposition home or self-care (01) ==
LOC: RADMAMWWP 15:17
PROVIDERS: ATTEND Obstetrics & Gynecology
DX: Z12.31 Encounter for screening mammogram for malignant neoplasm of breast (principal); M85.88 Other specified disorders of bone density and structure, other site; Z78.0 Asymptomatic menopausal state; Z80.3 Family history of malignant neoplasm of breast
CPT/HCPCS: 77067; 77080

== ENCOUNTER → 2022-09-30 | Outpatient (CLI) | payer BC ==
--- NOTE | 2022-10-02 08:05 | CT ---
EXAMINATION TYPE: CT lumbar spine wo con DATE OF EXAM: 09/30/2022 COMPARISON: None HISTORY: low back pain CT DLP: [address] of the lumbar spine was performed. Bone and soft tissue window settings are submitted as well as coronal and sagittal reconstructions. L1-L2: Normal disc space height. No disc herniation protrusion or central stenosis. No facet joint arthropathy. No evidence for foraminal encroachment. L2-L3: Normal disc space height. No disc herniation protrusion or central stenosis. No facet joint arthropathy. No evidence for foraminal encroachment. L3-L4: Normal disc space height. No disc herniation protrusion or central stenosis. No facet joint arthropathy. No evidence for foraminal encroachment. L4-L5: Normal disc space height. No disc herniation protrusion or central stenosis. No facet joint arthropathy. No evidence for foraminal encroachment. L5-S1: Vacuum disc changes with the severe degenerative disc space narrowing. Mild posterior disc bul ge posterocentrally. No evidence for disc herniation or central stenosis. Foramina are patent bilater ally. No paraspinal masses are identified. Lumbar segments are free if fracture. IMPRESSION: 1. Degenerative disc disease L5-S1 with minimal disc bulge noted. Otherwise unremarkable study.
== END | disposition home or self-care (01) ==
LOC: RADCTMAIN 15:17
PROVIDERS: ATTEND Orthopaedic Surgery Orthopaedic Surgery of the Spine
DX: M51.16 Intervertebral disc disorders with radiculopathy, lumbar region (principal); M51.17 Intervertebral disc disorders with radiculopathy, lumbosacral region; M41.86 Other forms of scoliosis, lumbar region; M16.11 Unilateral primary osteoarthritis, right hip; M79.18 Myalgia, other site; Z95.810 Presence of automatic (implantable) cardiac defibrillator
CPT/HCPCS: 72131

== ENCOUNTER → 2023-10-17 | Outpatient (CLI) | payer BC ==
--- NOTE | 2023-10-20 11:34 | MM ---
Reason for Exam: Screening (asymptomatic). Last mammogram was performed 1 year(s) and 2 month(s) ago. Patient History: Menarche at age 12. First Full-Term at age 25. Postmenopausal. Other cancer, age 30. Currently using Estrogen, beginning at age 50 for 2 years. Currently using Progesterone, beginning at age 50 for 2 years. Sister had breast cancer, age 52. Risk Values: Hien 5 year model risk: 2.2%. NCI Lifetime model risk: 15.8%. Prior Study Comparison: 07/29/2021 Bilateral Diagnostic Mammogram, [facility]. 02/04/2022 Left MG diagnostic mammo LT w CAD, [facility]. 08/08/2022 Bilateral MG screening mammo w CAD, [facility]. Tissue Density: The breasts are heterogeneously dense, which may obscure small masses. Findings: Analyzed By CAD. Right breast: There is no suspicious group of microcalcifications or new suspicious mass. Left breast: There is no suspicious group of microcalcifications or new suspicious mass. Overall Assessment: Negative, BI-RAD 1 Management: Screening Mammogram of both breasts in [address] [facility] will attempt to contact patient to return for supplemental views and ultrasound if indicated. Patient should continue monthly self-breast exams. A clinical breast exam by your physician is recommended on an annual basis. This exam should not preclude additional follow-up of suspicious palpable abnormalities. Note on Hien scores and lifetime risk: 1. A Hien score greater than 3% is considered moderate risk. If this is the case, consider specialist referral to assess eligibility for a risk reducing agent. 2. If overall lifetime risk for the development of breast cancer is 20% or higher, the patient may qualify for future screening with alternating mammogram and breast MRI. Electronically signed and approved by: Jm Tamez DO
== END | disposition home or self-care (01) ==
LOC: RADMAMWWP 12:55
PROVIDERS: ATTEND Family Medicine
DX: Z12.31 Encounter for screening mammogram for malignant neoplasm of breast (principal); Z78.0 Asymptomatic menopausal state; Z80.3 Family history of malignant neoplasm of breast
CPT/HCPCS: 77067

== ENCOUNTER → 2024-04-09 | Outpatient (CLI) | payer BC | END | disposition home or self-care (01) | LOC: LABWHC1 11:35 | PROVIDERS: ATTEND Internal Medicine Infectious Disease | DX: N95.1 Menopausal and female climacteric states (principal) | CPT/HCPCS: 36415; 82670 ==

== ENCOUNTER → 2024-11-06 | Outpatient (CLI) | payer BC ==
--- NOTE | 2024-11-06 13:38 | MM ---
Reason for Exam: Screening (asymptomatic). Last mammogram was performed 1 year(s) and 1 month(s) ago. Patient History: Menarche at age 12. First Full-Term at age 25. Postmenopausal. Other cancer, age 30. Currently using Estrogen, beginning at age 50 for 2 years. Currently using Progesterone, beginning at age 50 for 2 years. Sister had breast cancer, age 52. Risk Values: Hien 5 year model risk: 2.3%. NCI Lifetime model risk: 15.5%. Prior Study Comparison: 02/04/2022 Left MG diagnostic mammo LT w CAD, [facility]. 08/08/2022 Bilateral MG screening mammo w CAD, [facility]. 10/17/2023 Bilateral MG screening mammo w CAD, [facility]. Tissue Density: The breasts are heterogeneously dense, which may obscure small masses. Findings: Analyzed By CAD. A few groups of small benign-appearing round calcifications bilaterally are redemonstrated. There is no suspicious group of microcalcifications or new suspicious mass in either breast. Overall Assessment: Negative, BI-RAD 1 Management: Screening Mammogram of both breasts in 1 year. . Patient should continue monthly self-breast exams. A clinical breast exam by your physician is recommended on an annual basis. This exam should not preclude additional follow-up of suspicious palpable abnormalities. Note on Hien scores and lifetime risk: 1. A Hien score greater than 3% is considered moderate risk. If this is the case, consider specialist referral to assess eligibility for a risk reducing agent. 2. If overall lifetime risk for the development of breast cancer is 20% or higher, the patient may qualify for future screening with alternating mammogram and breast MRI. [facility], , 11/06/2024 1:35 PM. Electronically signed and approved by: David Ramon M.D.
== END | disposition home or self-care (01) ==
LOC: RADMAMWWP 12:52
PROVIDERS: ATTEND Family Medicine
DX: Z12.31 Encounter for screening mammogram for malignant neoplasm of breast (principal); R92.333 Mammographic heterogeneous density, bilateral breasts; R92.1 Mammographic calcification found on diagnostic imaging of breast; Z78.0 Asymptomatic menopausal state; Z80.3 Family history of malignant neoplasm of breast
CPT/HCPCS: 77067